=== PATIENT | female | born 1960 | race Caucasian/White ===

== ENCOUNTER 2018-05-19 19:51 | Emergency (ER) | payer BC ==
[2018-05-19 20:00] VITALS: BP 193/104
[2018-05-19] MEDS ORDERED: LOSA-44 PO (20:05)
--- NOTE | 2018-05-19 20:10 | ER Report ---
History and Physical Time Seen By MD: 20:10 Hx. of Stated Complaint: PT STARTED HAVING DIARRHEA YESTERDAY WITH VOMITING STARTING TODAY. PT REPORTS LOWER RIGHT AND FLANK PAIN. HPI/ROS CHIEF COMPLAINT: Abdominal pain, vomiting and diarrhea HISTORY OF PRESENT ILLNESS: This is a 57-year-old female. She started having abdominal pain yesterday, lower right abdomen and right flank. Also associated with some loose stools. Started having vomiting today. His having urinary frequency as well. No fevers or chills. Denies any shortness of breath or cough. No sick contacts. No possible bad food exposure that she is aware of. Allergies: Coded Allergies: No Known Drug Allergies (Unverified , 05/19/18) Home Meds Active Scripts Ondansetron (ZOFRAN ODT) 4 Mg Tab.rapdis, 4 MG PO Q6H PRN for NAUSEA/VOMITING, #20 TAB.JAMAL 0 Refills Prov:MAX SALINAS MD 05/19/18 Ketorolac Tromethamine (KETOROLAC TROMETHAMINE) 10 Mg Tab, 10 MG PO Q6H PRN for PAIN, #12 TAB 0 Refills Prov:MAX SALINAS MD 05/19/18 Oxycodone Hcl/Acetaminophen (PERCOCET 5-325 MG TABLET) 1 Each Tablet, 1 EACH PO Q4H PRN for PAIN, #12 TAB 0 Refills Prov:MAX SALINAS MD 05/19/18 Tamsulosin Hcl (FLOMAX) 0.4 Mg Cap.er.24h, 0.4 MG PO QDAY, #14 CAP 0 Refills Prov:MAX SALINAS MD 05/19/18 Reported Medications Losartan/Hydrochlorothiazide (HYZAAR 100-25 TABLET) 1 Each Tablet, 1 EACH PO QDAY 05/19/18 Reviewed Nurses Notes: Yes Hx Substance Use Disorder: No Hx Alcohol Use: No Constitutional Vital Sign - Last 24 Hours 05/19/18 20:00 Temp 100.3 Pulse 112 Resp 20 B/P (MAP) 193/104 Pulse Ox 91 O2 Delivery Room Air Intake and Output 05/19/18 05/19/18 05/20/18 15:00 23:00 07:00 Intake Total 1000 ml Balance 1000 ml Physical Exam General Appearance: The patient is alert. Having some acute distress because of pain. Eyes: Pupils are equal, round. No pallor, injection or icterus. ENT: Mucous membranes are moist. Respiratory: Lungs are clear to auscultation. Cardiovascular: Regular rate and rhythm. No murmurs, gallops or rubs. Normal capillary refill. Gastrointestinal: Abdomen is soft, tender in the lower right and right flank. Nondistended. Guarding but no rebound. No masses or organomegaly. Normal active bowel sounds. Is having some right-sided CVA tenderness. Neurological: Alert and oriented x3. Skin: Warm and dry. Musculoskeletal: Extremities are nontender. No tenderness in palpation of the cervical, thoracic and lumbar spine. DIFFERENTIAL DIAGNOSIS: After history and physical exam, differential diagnosis was considered for abdominal pain including but not limited to appendicitis, cholecystitis, gastritis and urinary tract infection. Medical Decision Making Data Points Result Diagram: 05/19/18201605/19/182016 Laboratory Hematology Test 05/19/18 20:17 Red Blood Count 6.09 M/uL (4.17-5.56) Mean Corpuscular Volume 84.5 fL (80.0-96.0) Mean Corpuscular Hemoglobin 28.4 pg (26.0-33.0) Mean Corpuscular Hemoglobin Concent 33.6 g/dL (32.0-36.0) Red Cell Distribution Width 14.0 % (11.5-14.5) Mean Platelet Volume 8.2 fL (7.2-11.1) Neutrophils (%) (Auto) 72.5 % (39.4-72.5) Lymphocytes (%) (Auto) 17.3 % (17.6-49.6) Monocytes (%) (Auto) 9.1 % (4.1-12.4) Eosinophils (%) (Auto) 0.5 % (0.4-6.7) Basophils (%) (Auto) 0.6 % (0.3-1.4) Nucleated RBC Relative Count (auto) 0.0 /100WBC Neutrophils # (Auto) 3.9 K/uL (2.0-7.4) Lymphocytes # (Auto) 0.9 K/uL (1.3-3.6) Monocytes # (Auto) 0.5 K/uL (0.3-1.0) Eosinophils # (Auto) 0.0 K/uL (0.0-0.5) Basophils # (Auto) 0.0 K/uL (0.0-0.1) Nucleated RBC Absolute Count (auto) 0.00 K/uL Sodium Level 141 mmol/L (137-145) Potassium Level 3.6 mmol/L (3.5-5.0) Chloride Level 102 mmol/L (98-107) Carbon Dioxide Level 25 mmol/L (22-31) Blood Urea Nitrogen 15 mg/dl (7-18) Creatinine 0.80 mg/dl (0.52-1.04) Glomerular Filtration Rate Calc > 60.0 Random Glucose 118 mg/dl (75-110) Calcium Level 9.3 mg/dl (8.4-10.2) Total Bilirubin 0.5 mg/dl (0.2-1.3) Aspartate Amino Transf (AST/SGOT) 32 U/L (0-35) Alanine Aminotransferase (ALT/SGPT) 43 U/L (0-56) Alkaline Phosphatase 68 U/L (0-126) Total Protein 8.0 g/dl (6.3-8.2) Albumin 4.5 g/dl (3.5-5.0) Amylase Level 75 U/L (0-110) Lipase 78 U/L (23-300) Chemistry Test 05/19/18 20:17 White Blood Count 5.4 k/uL (4.5-11.0) Red Blood Count 6.09 M/uL (4.17-5.56) Hemoglobin 17.3 g/dL (12.0-16.0) Hematocrit 51.5 % (34.0-47.0) Mean Corpuscular Volume 84.5 fL (80.0-96.0) Mean Corpuscular Hemoglobin 28.4 pg (26.0-33.0) Mean Corpuscular Hemoglobin Concent 33.6 g/dL (32.0-36.0) Red Cell Distribution Width 14.0 % (11.5-14.5) Platelet Count 214 K/uL (150-450) Mean Platelet Volume 8.2 fL (7.2-11.1) Neutrophils (%) (Auto) 72.5 % (39.4-72.5) Lymphocytes (%) (Auto) 17.3 % (17.6-49.6) Monocytes (%) (Auto) 9.1 % (4.1-12.4) Eosinophils (%) (Auto) 0.5 % (0.4-6.7) Basophils (%) (Auto) 0.6 % (0.3-1.4) Nucleated RBC Relative Count (auto) 0.0 /100WBC Neutrophils # (Auto) 3.9 K/uL (2.0-7.4) Lymphocytes # (Auto) 0.9 K/uL (1.3-3.6) Monocytes # (Auto) 0.5 K/uL (0.3-1.0) Eosinophils # (Auto) 0.0 K/uL (0.0-0.5) Basophils # (Auto) 0.0 K/uL (0.0-0.1) Nucleated RBC Absolute Count (auto) 0.00 K/uL Glomerular Filtration Rate Calc > 60.0 Calcium Level 9.3 mg/dl (8.4-10.2) Total Bilirubin 0.5 mg/dl (0.2-1.3) Aspartate Amino Transf (AST/SGOT) 32 U/L (0-35) Alanine Aminotransferase (ALT/SGPT) 43 U/L (0-56) Alkaline Phosphatase 68 U/L (0-126) Total Protein 8.0 g/dl (6.3-8.2) Albumin 4.5 g/dl (3.5-5.0) Amylase Level 75 U/L (0-110) Lipase 78 U/L (23-300) EKG/Imaging Imaging EXAMINATION: CT abdomen and pelvis with IV contrast HISTORY: Right abdominal pain. TECHNIQUE: Axial CT images of the abdomen and pelvis were obtained with IV contrast, with coronal and sagittal 2D reconstructed images. One of the following dose optimization techniques was utilized in the performance of this exam: Automated exposure control; adjustment of the mA and/or kV according to the patient's size; or use of an iterative reconstruction technique. Specific details can be referenced in the facility's radiology CT exam operational policy. Contrast: 75 mL of IV Isovue-370. COMPARISON: None. FINDINGS: Liver: Fatty infiltration of the liver. Single subcentimeter hypodensity in the right lobe of the liver likely represents a small cyst. The hepatic veins and portal veins are patent. Gallbladder and bile ducts: Negative. Spleen: Negative. Pancreas: Negative. Adrenal glands: Negative. Kidneys: Mild hydronephrosis of the right kidney, with an obstructing 4 mm calculus in the distal right ureter at the UVJ. There is a delayed right nephrogram, compatible with obstructive uropathy. Punctate nonobstructing 1-2 mm calculi in the mid left kidney. The left kidney is negative for hydronephrosis. No left ureteral calculus. Bowel and peritoneum: The small bowel and colon are normal in caliber, without evidence of obstruction or any focal inflammatory process. There are a few scattered colonic diverticula, without evidence of diverticulitis. Normal appendix. No free fluid or free intraperitoneal air. Pelvic structures: Hysterectomy. The urinary bladder is decompressed. Lymph node assessment: Negative. Vessels: Mild vascular calcifications. Normal caliber abdominal aorta. Musculoskeletal: Chronic degenerative changes along the lower lumbar spine with moderate disc space narrowing at L4-L5. Body wall: Negative. Lung bases: Negative. IMPRESSION: 1. Obstructing 4 mm calculus in the distal right ureter at the UVJ, with mild right hydronephrosis. 2. Punctate nonobstructing left renal calculi. 3. No other acute intra-abdominal findings. 4. Normal appendix. 5. Colonic diverticulosis. 6. Hepatic steatosis. Report Dictated By: Terrence Juares MD at 05/19/2018 9:19 PM ED Course/Re-evaluation Clinical Indication for ER IV: Hydration, IV Access ED Course IV started and labs obtained. Patient was given morphine and Zofran to help with pain and nausea and this did help quite a bit. CT scan was obtained and did show 4 mm stone at the right UVJ. Discussed this with the patient. Conservative management discussed. Home with Percocet, Toradol, Zofran, and started on Flomax. Decision to Disposition Date: May 19, 2018 Decision to Disposition Time: 21:42 Depart Departure Latest Vital Signs Vital Signs Date Time Temp Pulse Resp B/P (MAP) Pulse Ox O2 Delivery O2 Flow Rate FiO2 05/19/18 20:00 100.3 112 20 193/104 91 Room Air Impression: Primary Impression: Kidney stone Condition: Improved Disposition: HOME OR SELF-CARE New Scripts Ondansetron (ZOFRAN ODT) 4 Mg Tab.rapdis 4 MG PO Q6H PRN for NAUSEA/VOMITING, #20 TAB.JAMAL 0 Refills Prov: MAX SALINAS MD 05/19/18 Ketorolac Tromethamine (KETOROLAC TROMETHAMINE) 10 Mg Tab 10 MG PO Q6H PRN for PAIN, #12 TAB 0 Refills Prov: MAX SALINAS MD 05/19/18 Oxycodone Hcl/Acetaminophen (PERCOCET 5-325 MG TABLET) 1 Each Tablet 1 EACH PO Q4H PRN for PAIN, #12 TAB 0 Refills Prov: MAX SALINAS MD 05/19/18 Tamsulosin Hcl (FLOMAX) 0.4 Mg Cap.er.24h 0.4 MG PO QDAY, #14 CAP 0 Refills Prov: MAX SALINAS MD 05/19/18 Patient Instructions: Kidney Stones (ED) Additional Instructions: Rest and increase fluid intake. For pain you can use: Percocet 5/325, take 1-2 every 4 hours as needed for pain. Toradol 10mg, one every 6 hours as needed for pain. For Nausea: Zofran 4mg, one every 4-6 hours as needed for nausea. To help the stone to pass and to help decrease swelling and pain in the urinary system after the stone passes, we recommend using Flomax 0.4mg one daily for the next couple of weeks. MAX SALINAS MD May 19, 2018 20:10
[2018-05-19] MEDS ORDERED: NS(*) 0.9% 1000 ML BAG 1,000 ML IV ONE (20:16)
[2018-05-19] MEDS ORDERED: MORPHINE 4 MG/ML SDV IVP ONE (20:20)
[2018-05-19] MEDS ORDERED: ONDANSETRON 4 MG/2 ML VIAL IVP ONE (20:20)
[2018-05-19] MEDS ORDERED: IOPAMIDOL 76% 75 ML INFUS BTL 75 ML ONE (20:28)
[2018-05-19 20:30] LABS: PLATELET COUNT, AUTOMATED 214 K/uL (150-450)
--- NOTE | 2018-05-19 21:30 | RADIOLOGY IMAGING REPORT ---
FACILITY: [facility] - [place] PATIENT NAME: Kamryn Babcock : 1960 MR: [id number] V: [id number] EXAM DATE: ORDERING PHYSICIAN: MAX SALINAS TECHNOLOGIST: Location: [facility] [place] Patient: Kamryn Babcock : 1960 Visit/Account:[id number] Date of Sevice: 05/19/2018 EXAMINATION: CT abdomen and pelvis with IV contrast HISTORY: Right abdominal pain. TECHNIQUE: Axial CT images of the abdomen and pelvis were obtained with IV contrast, with coronal a nd sagittal 2D reconstructed images. One of the following dose optimization techniques was utilized in the performance of this exam: Autom ated exposure control; adjustment of the mA and/or kV according to the patient's size; or use of an i terative reconstruction technique. Specific details can be referenced in the facility's radiology C T exam operational policy. Contrast: 75 mL of IV Isovue-370. COMPARISON: None. FINDINGS: Liver: Fatty infiltration of the liver. Single subcentimeter hypodensity in the right lobe of the l iver likely represents a small cyst. The hepatic veins and portal veins are patent. Gallbladder and bile ducts: Negative. Spleen: Negative. Pancreas: Negative. Adrenal glands: Negative. Kidneys: Mild hydronephrosis of the right kidney, with an obstructing 4 mm calculus in the distal ri ght ureter at the UVJ. There is a delayed right nephrogram, compatible with obstructive uropathy. Punctate nonobstructing 1-2 mm calculi in the mid left kidney. The left kidney is negative for hydro nephrosis. No left ureteral calculus. Bowel and peritoneum: The small bowel and colon are normal in caliber, without evidence of obstructi on or any focal inflammatory process. There are a few scattered colonic diverticula, without evidenc e of diverticulitis. Normal appendix. No free fluid or free intraperitoneal air. Pelvic structures: Hysterectomy. The urinary bladder is decompressed. Lymph node assessment: Negative. Vessels: Mild vascular calcifications. Normal caliber abdominal aorta. Musculoskeletal: Chronic degenerative changes along the lower lumbar spine with moderate disc space narrowing at L4-L5. Body wall: Negative. Lung bases: Negative. IMPRESSION: 1. Obstructing 4 mm calculus in the distal right ureter at the UVJ, with mild right hydronephrosis. 2. Punctate nonobstructing left renal calculi. 3. No other acute intra-abdominal findings. 4. Normal appendix. 5. Colonic diverticulosis. 6. Hepatic steatosis. Report Dictated By: Terrence Juares MD at 05/19/2018 9:19 PM Report E-Signed By: Terrence Juares MD at 05/19/2018 9:25 PM WSN:[id number]
[2018-05-19] MEDS ORDERED: ONDANSETRON 4 MG ODT TH SL ONE (21:40)
[2018-05-19] MEDS ORDERED: KETOROLAC TROM 10 MG TAB TH PO ONE (21:40)
[2018-05-19] MEDS ORDERED: TAMSULOSIN HCL 0.4 MG CAP PO ONE (21:40)
[2018-05-19] MEDS ORDERED: KETOROLAC TROM 10MG TAB PO ONE (21:40)
[2018-05-19] MEDS ORDERED: oxyCODONE/ACETAMIN 5/325MG TH 2 TAB/BOTTLE PO ONE (21:40)
[2018-05-19] MEDS ORDERED: TAMS0.4C25 PO (21:44)
[2018-05-19] MEDS ORDERED: ONDA4TAB PO (21:44)
[2018-05-19] MEDS ORDERED: OXYC-865 PO (21:44)
[2018-05-19] MEDS ORDERED: KET10 PO (21:44)
== END 2018-05-19 22:02 | disposition home or self-care (01) ==
LOC: ER 20:03
DX: N20.0 Calculus of kidney (principal); N13.2 Hydronephrosis with renal and ureteral calculous obstruction
CPT/HCPCS: 74177; 82150; 83690; 85025; 96361; 96374; 96375; 99284; J2270; J2405; J7030; Q9967; S0119; 82040; 82247; 82310; 82374; 82435; 82565; 82947; 84075; 84132; 84155; 84295; 84450; 84460; 84520

== ENCOUNTER 2019-01-04 01:48 | Day surgery (SDC) | payer BC ==
[~2019-01-04] VITALS: Ht 149.9 cm; Wt 93.9 kg
[2019-01-04] VITALS (7 sets, daily range): BP systolic 118–159; BP diastolic 81–107
[~2019-01-04 01:48] MED LIST: ASPI-1471 PO; KET10 PO; LOSA-44 PO; MULT-947 PO; ONDA4TAB PO; OXYC-865 PO; TAMS0.4C25 PO
[2019-01-04] MEDS ORDERED: PROPOFOL EMUL(*) 10MG/ML 20 ML 40 ML ONE (08:57)
[2019-01-04] MEDS ORDERED: LIDOCAINE MPF 1% 5 ML VIAL ONE (08:57)
[2019-01-04] MEDS ORDERED: NORMOSOL R SOLN(*) 1000 ML BAG 1,000 ML IV PRN (09:40)
[2019-01-04] MEDS ORDERED: LIDOCAINE/SOD BICARB 8.4% SYR ID ONE (09:40)
--- NOTE | 2019-01-04 11:02 | NUR ---
1056 SBAR REPORT WAS RECEIVED FROM DR. RUELAS AND ROSIE SOARES. PATIENT IS BREATHING SPONTANEOUSLY AT A MODERATE RATE AND DEPTH. LUNGS ARE CLEAR. SHE ARRIVED ON 10 LITERS OXYMASK. O2 WAS MOVED TO 4 LITERS ON ARRIVAL. BOWEL SOUNDS ARE HYPERACTIVE. UNABLE TO ASSESS PAIN OR NAUSEA. 1103 PATIENT CONTINUES TO SLEEP
--- NOTE | 2019-01-04 11:07 | NUR ---
1105 PATIENT BEGAN TO WAKE UP. PATIENT WAS MOVED TO ROOM AIR. SHE DENIES ANY PAIN OR NAUSEA.
--- NOTE | 2019-01-04 11:13 | NUR ---
1113 PATIENT MOVED TO A SEMI FOWLERS POSITION. SHE BEGAN DRINKING WATER
--- NOTE | 2019-01-04 11:39 | NUR ---
1138 PATIENT BEGAN EATING JELLO AND YANI CRACKERS
--- NOTE | 2019-01-04 12:24 | NUR ---
1153 TOOK BP WHILE STANDING. BP WAS ELEVATED. TOLD PATIENT I WOULD LET HER USE THE RESTROOM AND GET DRESSED AND WE WOULD RECHECK BP 1154 PATIENT BEGAN GETTING DRESSED 1158 PATIENT WAS ABLE TO VOID 1204 BP WAS LOWERED SLIGHTLY. PATIENT STATES SHE FEELS WELL AND DENIES ANY DIZZINESS, LIGHTHEADEDNESS OR CHEST PAIN 1206 IV WAS DC'D WITH CATH INTACT 1213 FINISHED DC INSTRUCTIONS WITH PATIENT AND DAUGHTER. THEY VERBALIZED UNDERSTANDING. 1224 PATIENT WAS TAKEN OUT VIA WHEELCHAIR. LUNGS ARE CLEAR. BOWEL SOUNDS ARE HYPERACTIVE. DENIES ANY PAIN OR NAUSEA. SEE DISCHARGE ASSESSMENT.
== END 2019-01-04 12:24 | disposition home or self-care (01) ==
LOC: OR 01:48
PROVIDERS: ATTEND Family Medicine
DX: Z12.11 Encounter for screening for malignant neoplasm of colon (principal)
CPT/HCPCS: 00812; 45378; J2001; J2704

== ENCOUNTER → 2019-01-16 | Outpatient (CLI) | payer BC ==
--- NOTE | 2019-01-22 09:34 | RADIOLOGY IMAGING REPORT ---
FACILITY: [facility] PATIENT NAME: KAMRYN PARRA : [id number] MR: [id number] V: [id number] EXAM DATE: ORDERING PHYSICIAN: KIRIT CROFT TECHNOLOGIST: Kamryn Machado PROCEDURE: BILATERAL DIGITAL SCREENING MAMMOGRAM WITH CAD ASSISTED INTERPRETATION & 3D TOMOSYNTHESIS REASON FOR STUDY: Screening. FAMILY HISTORY OF BREAST CANCER: None. BREAST PROCEDURES/TREATMENTS: None. COMPARISON: 04/15/17, 04/15/16, 04/09/16, 03/20/15, 03/15/14, 03/15/13. VIEWS OBTAINED: 2D & 3D full field CC & MLO & 2D XCC full field. BREAST DENSITY: There are scattered areas of fibroglandular density throughout the breasts. MAMMOGRAM FINDINGS: The parenchymal pattern has remained stable allowing for difference in mammographic technique & patient positioning. IMPRESSION: BIRADS 1: Negative. DIAGNOSTIC CATEGORY 1--NEGATIVE. RECOMMENDATIONS: ROUTINE MAMMOGRAM AND CLINICAL EVALUATION. Dictated by: Maira Lopez M.D. on 01/19/2019 at 15:40 Transcribed by: ARIEL on 01/22/2019 at 8:10 Approved by: Maira Lopez M.D. on 01/22/2019 at 9:33 [facility]
== END ==
LOC: MAMO 00:35
PROVIDERS: ATTEND Physician Assistant
DX: Z12.31 Encounter for screening mammogram for malignant neoplasm of breast (principal)
CPT/HCPCS: 77063; 77067

== ENCOUNTER → 2019-01-19 | Outpatient (CLI) | payer BC | LOC: RESP 20:01 | PROVIDERS: ATTEND Physician Assistant | DX: G47.33 Obstructive sleep apnea (adult) (pediatric) (principal); G47.61 Periodic limb movement disorder; G47.36 Sleep related hypoventilation in conditions classified elsewhere ==

== ENCOUNTER → 2019-03-21 | Outpatient (CLI) | payer BC | LOC: RESP 21:01 | PROVIDERS: ATTEND Physician Assistant | DX: G47.33 Obstructive sleep apnea (adult) (pediatric) (principal); G47.36 Sleep related hypoventilation in conditions classified elsewhere; G47.61 Periodic limb movement disorder ==